=== PATIENT | male | born 1945 | race Hispanic/Latino ===

== ENCOUNTER 2018-07-03 17:26 | Emergency (ER) | payer MEDICARE, OTHER ==
[2018-07-03 17:27] VITALS: BMI 31.2
[2018-07-03 17:49] VITALS: BP 155/82; PULSE 72; RESP 18; TEMP 99; O2SAT 99
--- NOTE | 2018-07-03 18:37 | C.PDOC ---
History Of Present Illness 73 y/o male presents to the ED complaining of a bloody spot to sclera on left eye, noticed today. He denies any pain or trauma/injury. Also denies any visual changes. Patient states he was trying to comb his hair when he noticed the spot in the mirror. Denies any blood thinner use. Time Seen by Provider: 07/03/18 18:08 Chief Complaint (Nursing): Eye Problem History Per: Patient History/Exam Limitations: no limitations Onset/Duration Of Symptoms: Hrs Current Symptoms Are (Timing): Still Present Injury To Eye?: No Wears Contact Lens?: No Past Medical History Reviewed: Historical Data, Nursing Documentation, Vital Signs Vital Signs: Last Vital Signs Temp 99 F 07/03/18 17:46 Pulse 72 07/03/18 17:46 Resp 18 07/03/18 17:46 BP 155/82 H 07/03/18 17:46 Pulse Ox 99 07/03/18 17:46 - Medical History PMH: HTN, Kidney Stones ( 2008 POSSIBLY AT PRESENT) Denies: Chronic Kidney Disease Surgical History: Back Surgery (cervical fusion), Hernia Repair - [facility] RADICAL EXCIS SKIN LES (09/25/14) Family History: States: No Known Family Hx - Social History Hx Alcohol Use: No Hx Substance Use: No Review Of Systems Except As Marked, All Systems Reviewed And Found Negative. Constitutional: Negative for: Fever Eyes: Positive for: Other (blood spot to left eye). Negative for: Pain, Vision Change Physical Exam - Physical Exam Appears: Non-toxic, No Acute Distress Skin: Warm, Dry Head: Atraumatic, Normacephalic Eye(s): bilateral: PERRL, EOMI, right: Normal Inspection, left: Other (+ subconjunctival hemorrhage to left lateral sclera at 4 oclock position) Neck: Normal ROM Chest: Symmetrical Respiratory: No Accessory Muscle Use, Other (no respiratory distress) Neurological/Psych: Oriented x3, Normal Speech, Normal Cranial Nerves ED Course And Treatment O2 Sat by Pulse Oximetry: 99 (RA) Pulse Ox Interpretation: Normal Progress Note: Visual acuity performed, and is unremarkable. Reassured patient regarding diagnosis and the course of discharge. If persistent, advised to follow up with ophthalmology. Disposition Counseled Patient/Family Regarding: Diagnosis, Need For Followup - Disposition Referrals: Jacinto Shaikh MD [Staff Provider] - Disposition: HOME/ ROUTINE Disposition Time: 18:32 Condition: STABLE Additional Instructions: Follow up with [facility] Super[facility] tomorrow. Return to Ed if feel worse. 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 - Scribe Statement The provider has reviewed the documentation as recorded by the Scribe (Lauren Dillard) All medical record entries made by the Scribe were at my direction and personally dictated by me. I have reviewed the chart and agree that the record accurately reflects my personal performance of the history, physical exam, medical decision making, and the department course for this patient. I have also personally directed, reviewed, and agree with the discharge instructions and disposition.
== END 2018-07-03 18:44 | disposition home or self-care (01) ==
LOC: C.ER 17:26
DX: H11.32 Conjunctival hemorrhage, left eye (principal); I10 Essential (primary) hypertension; Z87.442 Personal history of urinary calculi